=== PATIENT | female | born 1930 | race African-American/Black ===

== ENCOUNTER 2017-12-01 13:28 | Inpatient (IN) | payer MEDICARE, MEDICAID ==
[2017-12-01] MEDS: DILTIAZEM 25 MG INJ IV (14:30)
[2017-12-01] MEDS: DILTIAZEM-D5W 125MG/125ML DRIP 125 ML IV (14:41)
[2017-12-01 15:14] LABS: ADD MAN DIFF? NO
[2017-12-01 15:21] LABS: WHITE BLOOD COUNT 4.7 10^3/ul (4.8-10.8)
[2017-12-01 15:21] LABS: BASOPHILS % 0.4 % (0.0-2.0); EOSINOPHILS # 0.1 10^3/ul (0.0-0.5); EOSINOPHILS % 2.3 % (0.0-7.0); HEMATOCRIT 41.5 % (37.0-47.0); LYMPHOCYTES # 1.9 10^3/ul (0.8-2.9); LYMPHOCYTES % 40.8 % (15.0-51.0); MEAN CORPUSCULAR HEMOGLOBIN 29.4 pg (29.0-33.0); MEAN CORPUSCULAR HGB CONC 31.3 g/dl (32.0-37.0); MEAN CORPUSCULAR VOLUME 93.9 fl (82.0-101.0); MEAN PLATELET VOLUME 12.3 fl (7.4-10.4); MONOCYTE # 0.6 10^3/ul (0.3-0.9); MONOCYTES % 13.6 % (0.0-11.0); NEUTROPHILS % 42.7 % (39.0-77.0); PLATELET COUNT 154 10^3/UL (140-415); RED BLOOD COUNT 4.42 10^6/ul (4.20-5.40); RED CELL DISTRIBUTION WIDTH 12.9 % (11.5-14.5)
[2017-12-01 15:35] LABS: INR 1.18; PROTIME 15.2 Sec (11.9-14.9); PT RATIO 1.2
[2017-12-01 15:36] LABS: PARTIAL THROMBOPLASTIN TIME 30.3 Sec (25.0-35.0)
[2017-12-01 15:41] LABS: ALANINE AMINOTRANSFERASE 26 IU/L (13-69); ALBUMIN/GLOBULIN RATIO 1.05; ALKALINE PHOSPHATASE 71 IU/L (42-121); ANION GAP 18 (8-16); ASPARTATE AMINO TRANSFERASE 24 IU/L (15-46); BILIRUBIN,INDIRECT 0.2 mg/dl (0-1.1); BILIRUBIN,TOTAL 0.2 mg/dl (0.2-1.3); BLOOD UREA NITROGEN 25 mg/dl (7-20); CALCIUM 9.2 mg/dl (8.4-10.2); CARBON DIOXIDE 28 mmol/L (21-31); CHLORIDE 104 mmol/L (97-110); CREATININE 0.98 mg/dl (0.44-1.00); GLUCOSE 166 mg/dl (70-220); POTASSIUM 4.5 mmol/L (3.5-5.1); SODIUM 145 mmol/L (135-144); TOTAL PROTEIN 7.8 g/dl (6.1-8.1)
[2017-12-01] MEDS: SOD CHLORIDE 0.9% 1,000 ML IV (15:44)
[2017-12-01 15:51] LABS: B-TYPE NATRIURETIC PEPTIDE 2950 PG/ML (0-450); TROPONIN-I 0.029 ng/ml (0.00-0.12)
[2017-12-01] MEDS ORDERED: ACETAMINOPHEN 325 MG TAB PO (16:00)
[2017-12-01] MEDS ORDERED: ONDANSETRON 4 MG INJ IV (16:00)
[2017-12-01] MEDS ORDERED: ZOLPIDEM 5 MG TAB PO (20:00)
[2017-12-01] MEDS ORDERED: NACL 0.9% 3 ML SYG IV (20:00)
[2017-12-01] MEDS ORDERED: ONDANSETRON 4 MG TAB PO (20:00)
[2017-12-01] MEDS: FUROSEMIDE 40 MG INJ IV (20:15)
[2017-12-01] MEDS: APIXABAN 5 MG TABLET PO (20:35)
[2017-12-01] MEDS: traMADol 50 MG TAB PO (23:28)
[2017-12-01] MEDS: METOPROLOL (XL) 25 MG TAB PO (23:29)
[2017-12-02 07:50] LABS: ADD MAN DIFF? NO
[2017-12-02 07:59] LABS: BASOPHILS % 0.4 % (0.0-2.0); EOSINOPHILS # 0.1 10^3/ul (0.0-0.5); EOSINOPHILS % 2.7 % (0.0-7.0); HEMATOCRIT 40.2 % (37.0-47.0); HEMOGLOBIN 12.8 g/dl (12.0-16.0); LYMPHOCYTES # 2.1 10^3/ul (0.8-2.9); LYMPHOCYTES % 42.2 % (15.0-51.0); MEAN CORPUSCULAR HEMOGLOBIN 29.7 pg (29.0-33.0); MEAN CORPUSCULAR HGB CONC 31.8 g/dl (32.0-37.0); MEAN CORPUSCULAR VOLUME 93.3 fl (82.0-101.0); MEAN PLATELET VOLUME 11.9 fl (7.4-10.4); MONOCYTE # 0.6 10^3/ul (0.3-0.9); MONOCYTES % 11.9 % (0.0-11.0); NEUTROPHIL # 2.1 10^3/ul (1.6-7.5); NEUTROPHILS % 42.6 % (39.0-77.0); PLATELET COUNT 166 10^3/UL (140-415); RED BLOOD COUNT 4.31 10^6/ul (4.20-5.40); RED CELL DISTRIBUTION WIDTH 12.7 % (11.5-14.5)
[2017-12-02 07:59] LABS: WHITE BLOOD COUNT 4.9 10^3/ul (4.8-10.8)
[2017-12-02 08:33] LABS: ALANINE AMINOTRANSFERASE 21 IU/L (13-69); ALBUMIN 3.8 g/dl (3.3-4.9); ALBUMIN/GLOBULIN RATIO 1.05; ALKALINE PHOSPHATASE 67 IU/L (42-121); ANION GAP 17 (8-16); ASPARTATE AMINO TRANSFERASE 22 IU/L (15-46); BILIRUBIN,INDIRECT 0.3 mg/dl (0-1.1); BILIRUBIN,TOTAL 0.3 mg/dl (0.2-1.3); BLOOD UREA NITROGEN 23 mg/dl (7-20); CALCIUM 8.9 mg/dl (8.4-10.2); CARBON DIOXIDE 30 mmol/L (21-31); CHLORIDE 102 mmol/L (97-110); CHOLESTEROL 168 mg/dl (100-200); CREATININE 0.98 mg/dl (0.44-1.00); GLUCOSE 160 mg/dl (70-220); HDL CHOLESTEROL 55 mg/dl (33-92); LDL CHOLESTEROL,CALCULATED 90 mg/dl; MAGNESIUM 1.7 mg/dl (1.7-2.5); POTASSIUM 4.1 mmol/L (3.5-5.1); SODIUM 145 mmol/L (135-144); TOTAL PROTEIN 7.4 g/dl (6.1-8.1); TRIGLYCERIDES 114 mg/dl (0-149)
[2017-12-02] MEDS: APIXABAN 5 MG TABLET PO ×2 (08:39→20:14)
[2017-12-02] MEDS: METOPROLOL (XL) 25 MG TAB PO ×2 (08:41→20:14)
[2017-12-02 08:55] LABS: HEMOGLOBIN A1C 7.4 % (0-5.9)
[2017-12-02] MEDS ORDERED: METOPROLOL (XL) 25 MG TAB PO (09:00)
[2017-12-02] MEDS: DILTIAZEM-D5W 125MG/125ML DRIP 125 ML IV (12:32)
[2017-12-02] MEDS: MAGNESIUM SULFATE 2 GM/50 ML 50 ML IVPB (17:05)
[2017-12-02] MEDS ORDERED: GLUCOSE GEL 15 GRAM TUBE BUCCAL (18:30)
[2017-12-02] MEDS ORDERED: GLUCAGON 1 MG INJ IM (18:30)
[2017-12-02] MEDS ORDERED: GLUCOSE GEL 15 GRAM TUBE PO ×2 (18:30)
[2017-12-02] MEDS ORDERED: ALPRAZOLAM 0.25 MG TAB PO (18:30)
[2017-12-02] MEDS ORDERED: DEXTROSE 50% 50 ML SYRINGE IV ×2 (18:30)
[2017-12-02] MEDS: Discontinue current oral sulfonylureas (glyburide, glipizide, and/or glimepiride) prior to XX (18:32)
[2017-12-02] MEDS: HYPOGLYCEMIA PROTOCOL when Glucose is <70 mg/dL or symptomatic <90 mg/dL. XX (18:32)
[2017-12-02] MEDS: FUROSEMIDE 40 MG INJ IV (18:45)
[2017-12-02] MEDS: INSULIN ASPART [NOVOLOG] 3 ML PEN SC (20:16)
[2017-12-03] MEDS: DILTIAZEM-D5W 125MG/125ML DRIP 125 ML IV ×3 (02:05→21:54)
[2017-12-03] MEDS: ACCU-CHEK XX (02:07)
[2017-12-03] MEDS: INSULIN ASPART [NOVOLOG] 3 ML PEN SC ×4 (08:02→20:15)
[2017-12-03] MEDS: METOPROLOL (XL) 25 MG TAB PO ×2 (09:00→20:10)
[2017-12-03] MEDS: APIXABAN 5 MG TABLET PO ×2 (09:28→20:09)
[2017-12-03] MEDS: traMADol 50 MG TAB PO ×2 (09:29→20:09)
[2017-12-03] MEDS: FUROSEMIDE 20 MG INJ IV (10:31)
[2017-12-03] MEDS: DILTIAZEM (CD) 120 MG CAP PO (10:31)
[2017-12-03] MEDS: DILTIAZEM (CD) 180 MG CAP PO (17:02)
[2017-12-03] MEDS: DOCUSATE SODIUM 100 MG CAP PO (18:40)
[2017-12-03] MEDS ORDERED: DILTIAZEM (CD) 120 MG CAP PO (21:00)
[2017-12-04] MEDS: ACCU-CHEK XX (01:16)
[2017-12-04] MEDS: DILTIAZEM (CD) 180 MG CAP PO ×2 (08:45→21:57)
[2017-12-04] MEDS: APIXABAN 5 MG TABLET PO ×2 (08:45→21:00)
[2017-12-04] MEDS: METOPROLOL (XL) 25 MG TAB PO ×2 (08:45→21:58)
[2017-12-04] MEDS: INSULIN ASPART [NOVOLOG] 3 ML PEN SC ×4 (08:48→21:00)
[2017-12-04 08:54] LABS: ADD MAN DIFF? NO
[2017-12-04 09:09] LABS: WHITE BLOOD COUNT 7.2 10^3/ul (4.8-10.8)
[2017-12-04 09:09] LABS: BASOPHILS % 0.3 % (0.0-2.0); EOSINOPHILS % 0.6 % (0.0-7.0); HEMATOCRIT 37.5 % (37.0-47.0); HEMOGLOBIN 12.1 g/dl (12.0-16.0); LYMPHOCYTES # 1.5 10^3/ul (0.8-2.9); LYMPHOCYTES % 21.1 % (15.0-51.0); MEAN CORPUSCULAR HGB CONC 32.3 g/dl (32.0-37.0); MEAN CORPUSCULAR VOLUME 93.1 fl (82.0-101.0); MONOCYTE # 1.1 10^3/ul (0.3-0.9); MONOCYTES % 15.2 % (0.0-11.0); NEUTROPHIL # 4.5 10^3/ul (1.6-7.5); NEUTROPHILS % 62.5 % (39.0-77.0); PLATELET COUNT 148 10^3/UL (140-415); RED BLOOD COUNT 4.03 10^6/ul (4.20-5.40)
[2017-12-04 09:32] LABS: ANION GAP 14 (8-16); BLOOD UREA NITROGEN 39 mg/dl (7-20); CALCIUM 8.3 mg/dl (8.4-10.2); CARBON DIOXIDE 31 mmol/L (21-31); CHLORIDE 97 mmol/L (97-110); CREATININE 1.43 mg/dl (0.44-1.00); GLUCOSE 209 mg/dl (70-220); POTASSIUM 4.8 mmol/L (3.5-5.1); SODIUM 137 mmol/L (135-144)
[2017-12-04] MEDS: traMADol 50 MG TAB PO ×2 (11:23→21:58)
[2017-12-04] MEDS: CEFTRIAXONE 1 GM/50 ML (PMX) 50 ML IVPB (12:07)
[2017-12-05] MEDS: ACCU-CHEK XX (01:51)
[2017-12-05] MEDS: APIXABAN 5 MG TABLET PO ×2 (07:49→21:23)
[2017-12-05] MEDS: DILTIAZEM (CD) 180 MG CAP PO ×2 (07:50→21:22)
[2017-12-05] MEDS: METOPROLOL (XL) 25 MG TAB PO ×2 (07:51→21:23)
[2017-12-05] MEDS: ACETAMINOPHEN 325 MG TAB PO (07:59)
[2017-12-05] MEDS: LINAGLIPTIN 5 MG TABLET PO (08:07)
[2017-12-05] MEDS: INSULIN ASPART [NOVOLOG] 3 ML PEN SC ×4 (08:10→21:25)
[2017-12-05 08:27] LABS: ADD MAN DIFF? NO
[2017-12-05 08:30] LABS: WHITE BLOOD COUNT 6.9 10^3/ul (4.8-10.8)
[2017-12-05 08:30] LABS: BASOPHILS % 0.1 % (0.0-2.0); EOSINOPHILS % 0.4 % (0.0-7.0); HEMATOCRIT 38.1 % (37.0-47.0); LYMPHOCYTES % 15.2 % (15.0-51.0); MEAN CORPUSCULAR HEMOGLOBIN 29.5 pg (29.0-33.0); MEAN CORPUSCULAR HGB CONC 31.5 g/dl (32.0-37.0); MEAN CORPUSCULAR VOLUME 93.6 fl (82.0-101.0); MEAN PLATELET VOLUME 11.6 fl (7.4-10.4); MONOCYTE # 0.7 10^3/ul (0.3-0.9); MONOCYTES % 10.1 % (0.0-11.0); NEUTROPHIL # 5.1 10^3/ul (1.6-7.5); NEUTROPHILS % 73.9 % (39.0-77.0); PLATELET COUNT 148 10^3/UL (140-415); RED BLOOD COUNT 4.07 10^6/ul (4.20-5.40); RED CELL DISTRIBUTION WIDTH 12.7 % (11.5-14.5)
[2017-12-05 08:49] LABS: ANION GAP 14 (8-16); BLOOD UREA NITROGEN 54 mg/dl (7-20); CALCIUM 8.5 mg/dl (8.4-10.2); CARBON DIOXIDE 31 mmol/L (21-31); CHLORIDE 93 mmol/L (97-110); CREATININE 1.54 mg/dl (0.44-1.00); GLUCOSE 216 mg/dl (70-220); MAGNESIUM 2.5 mg/dl (1.7-2.5); POTASSIUM 4.9 mmol/L (3.5-5.1); SODIUM 133 mmol/L (135-144)
[2017-12-05] MEDS: traMADol 50 MG TAB PO ×2 (09:08→22:49)
[2017-12-05] MEDS: CEFTRIAXONE 1 GM/50 ML (PMX) 50 ML IVPB (12:19)
[2017-12-06] MEDS: ACCU-CHEK XX (02:00)
[2017-12-06] MEDS: traMADol 50 MG TAB PO ×3 (06:19→22:23)
[2017-12-06] MEDS: INSULIN ASPART [NOVOLOG] 3 ML PEN SC ×4 (08:56→20:57)
[2017-12-06] MEDS: METOPROLOL (XL) 25 MG TAB PO ×2 (09:00→20:48)
[2017-12-06] MEDS: DILTIAZEM (CD) 180 MG CAP PO ×2 (09:19→20:56)
[2017-12-06] MEDS: LINAGLIPTIN 5 MG TABLET PO (09:20)
[2017-12-06 09:21] LABS: ADD MAN DIFF? NO
[2017-12-06] MEDS: APIXABAN 5 MG TABLET PO ×2 (09:21→20:57)
[2017-12-06 09:35] LABS: BASOPHILS % 0.3 % (0.0-2.0); EOSINOPHILS # 0.1 10^3/ul (0.0-0.5); EOSINOPHILS % 1.7 % (0.0-7.0); HEMATOCRIT 39.5 % (37.0-47.0); HEMOGLOBIN 12.5 g/dl (12.0-16.0); LYMPHOCYTES # 1.3 10^3/ul (0.8-2.9); MEAN CORPUSCULAR HEMOGLOBIN 29.6 pg (29.0-33.0); MEAN CORPUSCULAR HGB CONC 31.6 g/dl (32.0-37.0); MEAN CORPUSCULAR VOLUME 93.4 fl (82.0-101.0); MONOCYTE # 0.7 10^3/ul (0.3-0.9); MONOCYTES % 12.1 % (0.0-11.0); NEUTROPHIL # 3.8 10^3/ul (1.6-7.5); NEUTROPHILS % 64.6 % (39.0-77.0); PLATELET COUNT 171 10^3/UL (140-415); RED BLOOD COUNT 4.23 10^6/ul (4.20-5.40); RED CELL DISTRIBUTION WIDTH 12.7 % (11.5-14.5)
[2017-12-06 09:50] LABS: ANION GAP 13 (8-16); BLOOD UREA NITROGEN 62 mg/dl (7-20); CALCIUM 8.6 mg/dl (8.4-10.2); CARBON DIOXIDE 30 mmol/L (21-31); CHLORIDE 94 mmol/L (97-110); CREATININE 1.66 mg/dl (0.44-1.00); GLUCOSE 207 mg/dl (70-220); POTASSIUM 4.4 mmol/L (3.5-5.1); SODIUM 133 mmol/L (135-144)
[2017-12-06] MEDS: CEFTRIAXONE 1 GM/50 ML (PMX) 50 ML IVPB (11:41)
[2017-12-06] MEDS: SOD CHLORIDE 0.45% 1,000 ML IV (14:06)
[2017-12-07] MEDS: ACCU-CHEK XX (02:00)
[2017-12-07] MEDS: INSULIN ASPART [NOVOLOG] 3 ML PEN SC ×2 (08:08→11:30)
[2017-12-07 08:27] LABS: ADD MAN DIFF? NO
[2017-12-07 08:31] LABS: WHITE BLOOD COUNT 4.3 10^3/ul (4.8-10.8)
[2017-12-07 08:31] LABS: BASOPHILS % 0.7 % (0.0-2.0); EOSINOPHILS # 0.2 10^3/ul (0.0-0.5); EOSINOPHILS % 3.7 % (0.0-7.0); HEMATOCRIT 35.5 % (37.0-47.0); HEMOGLOBIN 11.4 g/dl (12.0-16.0); LYMPHOCYTES # 1.4 10^3/ul (0.8-2.9); LYMPHOCYTES % 32.3 % (15.0-51.0); MEAN CORPUSCULAR HEMOGLOBIN 29.8 pg (29.0-33.0); MEAN CORPUSCULAR HGB CONC 32.1 g/dl (32.0-37.0); MEAN CORPUSCULAR VOLUME 92.7 fl (82.0-101.0); MEAN PLATELET VOLUME 11.9 fl (7.4-10.4); MONOCYTE # 0.7 10^3/ul (0.3-0.9); MONOCYTES % 15.8 % (0.0-11.0); NEUTROPHILS % 47.3 % (39.0-77.0); PLATELET COUNT 157 10^3/UL (140-415); RED BLOOD COUNT 3.83 10^6/ul (4.20-5.40); RED CELL DISTRIBUTION WIDTH 12.8 % (11.5-14.5)
[2017-12-07 08:59] LABS: ANION GAP 10 (8-16); BLOOD UREA NITROGEN 47 mg/dl (7-20); CALCIUM 8.4 mg/dl (8.4-10.2); CARBON DIOXIDE 31 mmol/L (21-31); CHLORIDE 98 mmol/L (97-110); GLUCOSE 161 mg/dl (70-220); MAGNESIUM 2.7 mg/dl (1.7-2.5); POTASSIUM 4.2 mmol/L (3.5-5.1); SODIUM 135 mmol/L (135-144)
[2017-12-07] MEDS: METOPROLOL (XL) 25 MG TAB PO (09:00)
[2017-12-07] MEDS: SOD CHLORIDE 0.45% 1,000 ML IV (09:09)
[2017-12-07] MEDS: LINAGLIPTIN 5 MG TABLET PO (09:09)
[2017-12-07] MEDS: DILTIAZEM (CD) 180 MG CAP PO (09:09)
[2017-12-07] MEDS: APIXABAN 5 MG TABLET PO (09:09)
[2017-12-07] MEDS: CEFTRIAXONE 1 GM/50 ML (PMX) 50 ML IVPB (11:25)
== END 2017-12-07 15:39 | DRG 308 ==
LOC: E/R 13:28 → TEL 15:34
DX: I48.91 Unspecified atrial fibrillation (principal); I50.31 Acute diastolic (congestive) heart failure; N17.9 Acute kidney failure, unspecified; N39.0 Urinary tract infection, site not specified; E11.9 Type 2 diabetes mellitus without complications; I11.0 Hypertensive heart disease with heart failure; E83.42 Hypomagnesemia; Z79.01 Long term (current) use of anticoagulants; Z79.4 Long term (current) use of insulin; Z86.718 Personal history of other venous thrombosis and embolism
CPT/HCPCS: 36415; 71045; 80048; 80053; 80061; 82962; 83036; 83735; 83880; 84484; 85025; 85610; 85730; 87086; 93005; 93306; 96365; 96366; 96375; 97162; 99291-25; J1940

== ENCOUNTER 2017-12-07 17:53 | Inpatient (IN) | payer MEDICARE, MEDICAID ==
[2017-12-07] MEDS ORDERED: GLUCOSE GEL 15 GRAM TUBE PO ×2 (19:30)
[2017-12-07] MEDS ORDERED: GLUCAGON 1 MG INJ IM (19:30)
[2017-12-07] MEDS ORDERED: DEXTROSE 50% 50 ML SYRINGE IV ×2 (19:30)
[2017-12-07] MEDS ORDERED: NACL 0.9% 3 ML SYG IV (19:30)
[2017-12-07] MEDS ORDERED: ONDANSETRON 4 MG TAB PO (19:30)
[2017-12-07] MEDS ORDERED: GLUCOSE GEL 15 GRAM TUBE BUCCAL (19:30)
[2017-12-07] MEDS: INSULIN ASPART [NOVOLOG] 3 ML PEN SC (21:00)
[2017-12-07] MEDS: SOD CHLORIDE 0.45% 1,000 ML IV (21:30)
[2017-12-07] MEDS: METOPROLOL (XL) 25 MG TAB PO (21:31)
[2017-12-07] MEDS: APIXABAN 5 MG TABLET PO (21:31)
[2017-12-07] MEDS: DILTIAZEM (CD) 180 MG CAP PO (21:35)
[2017-12-07] MEDS: traMADol 50 MG TAB PO (21:35)
[2017-12-08 00:35] LABS: ADD UMIC NO; UR ASCORBIC ACID NEGATIVE (NEGATIVE); UR BILIRUBIN (Dip) NEGATIVE (NEGATIVE); UR BLOOD (Dip) NEGATIVE (NEGATIVE); UR CLARITY CLEAR (CLEAR); UR COLOR STRAW (YELLOW); UR GLUCOSE (Dip) NEGATIVE (NEGATIVE); UR KETONES (Dip) NEGATIVE (NEGATIVE); UR LEUKOCYTE ESTERASE (Dip) NEGATIVE Leu/ul (NEGATIVE); UR NITRITE (Dip) NEGATIVE (NEGATIVE); UR SPECIFIC GRAVITY (Dip) 1.006 (1.003-1.030); UR TOTAL PROTEIN (Dip) NEGATIVE (NEGATIVE); UR UROBILINOGEN (Dip) NEGATIVE (NEGATIVE)
[2017-12-08] MEDS: ACCU-CHEK XX (02:00)
[2017-12-08 08:17] LABS: ADD MAN DIFF? NO
[2017-12-08 08:19] LABS: BASOPHILS % 0.7 % (0.0-2.0); EOSINOPHILS # 0.2 10^3/ul (0.0-0.5); EOSINOPHILS % 3.3 % (0.0-7.0); HEMATOCRIT 39.9 % (37.0-47.0); HEMOGLOBIN 12.7 g/dl (12.0-16.0); LYMPHOCYTES # 1.6 10^3/ul (0.8-2.9); LYMPHOCYTES % 35.3 % (15.0-51.0); MEAN CORPUSCULAR HEMOGLOBIN 29.7 pg (29.0-33.0); MEAN CORPUSCULAR HGB CONC 31.8 g/dl (32.0-37.0); MEAN CORPUSCULAR VOLUME 93.4 fl (82.0-101.0); MEAN PLATELET VOLUME 11.7 fl (7.4-10.4); MONOCYTE # 0.6 10^3/ul (0.3-0.9); MONOCYTES % 13.1 % (0.0-11.0); NEUTROPHIL # 2.1 10^3/ul (1.6-7.5); NEUTROPHILS % 47.4 % (39.0-77.0); PLATELET COUNT 196 10^3/UL (140-415); RED BLOOD COUNT 4.27 10^6/ul (4.20-5.40); RED CELL DISTRIBUTION WIDTH 12.6 % (11.5-14.5)
[2017-12-08 08:19] LABS: WHITE BLOOD COUNT 4.5 10^3/ul (4.8-10.8)
[2017-12-08 08:46] LABS: ALANINE AMINOTRANSFERASE 23 IU/L (13-69); ALBUMIN 3.8 g/dl (3.3-4.9); ALBUMIN/GLOBULIN RATIO 0.95; ALKALINE PHOSPHATASE 52 IU/L (42-121); ANION GAP 14 (8-16); ASPARTATE AMINO TRANSFERASE 31 IU/L (15-46); BILIRUBIN,INDIRECT 0.3 mg/dl (0-1.1); BILIRUBIN,TOTAL 0.3 mg/dl (0.2-1.3); BLOOD UREA NITROGEN 28 mg/dl (7-20); CALCIUM 8.5 mg/dl (8.4-10.2); CARBON DIOXIDE 30 mmol/L (21-31); CHLORIDE 100 mmol/L (97-110); CREATININE 0.98 mg/dl (0.44-1.00); GLUCOSE 165 mg/dl (70-220); POTASSIUM 4.6 mmol/L (3.5-5.1); SODIUM 139 mmol/L (135-144); TOTAL PROTEIN 7.8 g/dl (6.1-8.1)
[2017-12-08] MEDS: INSULIN ASPART [NOVOLOG] 3 ML PEN SC ×4 (09:03→21:00)
[2017-12-08] MEDS: traMADol 50 MG TAB PO ×2 (09:18→21:32)
[2017-12-08] MEDS: LINAGLIPTIN 5 MG TABLET PO (09:18)
[2017-12-08] MEDS: DILTIAZEM (CD) 180 MG CAP PO ×2 (09:19→21:31)
[2017-12-08] MEDS: APIXABAN 5 MG TABLET PO ×2 (09:19→21:32)
[2017-12-08] MEDS: METOPROLOL (XL) 25 MG TAB PO ×2 (09:20→21:32)
[2017-12-08] MEDS ORDERED: VITAMIN A & D 5 GM OINT PACKET TOP (11:07)
[2017-12-08] MEDS: CEFTRIAXONE 1 GM/50 ML (PMX) 50 ML IVPB ×2 (12:00→14:14)
[2017-12-08] MEDS: SOD CHLORIDE 0.45% 1,000 ML IV (14:21)
[2017-12-08] MEDS: ALPRAZOLAM 0.25 MG TAB PO (21:32)
[2017-12-09] MEDS: ACCU-CHEK XX (02:00)
[2017-12-09] MEDS: INSULIN ASPART [NOVOLOG] 3 ML PEN SC ×4 (07:35→21:00)
[2017-12-09] MEDS: DILTIAZEM (CD) 180 MG CAP PO ×3 (09:00→21:16)
[2017-12-09] MEDS: METOPROLOL (XL) 25 MG TAB PO ×2 (10:42→21:17)
[2017-12-09] MEDS: LINAGLIPTIN 5 MG TABLET PO (10:43)
[2017-12-09] MEDS: APIXABAN 5 MG TABLET PO ×2 (10:43→21:15)
[2017-12-09] MEDS: CEFTRIAXONE 1 GM/50 ML (PMX) 50 ML IVPB (12:18)
[2017-12-09] MEDS: traMADol 50 MG TAB PO (21:15)
[2017-12-09] MEDS: ALPRAZOLAM 0.25 MG TAB PO (21:15)
[2017-12-10] MEDS: ACCU-CHEK XX (02:00)
[2017-12-10] MEDS: INSULIN ASPART [NOVOLOG] 3 ML PEN SC ×4 (07:35→20:49)
[2017-12-10] MEDS: APIXABAN 5 MG TABLET PO ×2 (09:04→20:22)
[2017-12-10] MEDS: DILTIAZEM (CD) 180 MG CAP PO ×2 (09:04→20:27)
[2017-12-10] MEDS: LINAGLIPTIN 5 MG TABLET PO (09:05)
[2017-12-10] MEDS: METOPROLOL (XL) 25 MG TAB PO ×2 (09:05→20:25)
[2017-12-10] MEDS: traMADol 50 MG TAB PO (20:22)
[2017-12-11] MEDS: ACCU-CHEK XX (02:20)
[2017-12-11 07:29] LABS: ADD MAN DIFF? NO
[2017-12-11 07:32] LABS: BASOPHILS % 0.8 % (0.0-2.0); EOSINOPHILS # 0.2 10^3/ul (0.0-0.5); EOSINOPHILS % 4.1 % (0.0-7.0); HEMATOCRIT 35.6 % (37.0-47.0); HEMOGLOBIN 11.5 g/dl (12.0-16.0); LYMPHOCYTES # 1.5 10^3/ul (0.8-2.9); LYMPHOCYTES % 37.8 % (15.0-51.0); MEAN CORPUSCULAR HEMOGLOBIN 29.9 pg (29.0-33.0); MEAN CORPUSCULAR HGB CONC 32.3 g/dl (32.0-37.0); MEAN CORPUSCULAR VOLUME 92.5 fl (82.0-101.0); MEAN PLATELET VOLUME 11.2 fl (7.4-10.4); MONOCYTE # 0.5 10^3/ul (0.3-0.9); MONOCYTES % 12.9 % (0.0-11.0); NEUTROPHIL # 1.7 10^3/ul (1.6-7.5); NEUTROPHILS % 44.1 % (39.0-77.0); PLATELET COUNT 189 10^3/UL (140-415); RED BLOOD COUNT 3.85 10^6/ul (4.20-5.40); RED CELL DISTRIBUTION WIDTH 12.7 % (11.5-14.5)
[2017-12-11 07:32] LABS: WHITE BLOOD COUNT 3.9 10^3/ul (4.8-10.8)
[2017-12-11 07:54] LABS: ANION GAP 14 (8-16); BLOOD UREA NITROGEN 21 mg/dl (7-20); CALCIUM 8.5 mg/dl (8.4-10.2); CARBON DIOXIDE 27 mmol/L (21-31); CHLORIDE 105 mmol/L (97-110); CREATININE 0.95 mg/dl (0.44-1.00); GLUCOSE 133 mg/dl (70-220); POTASSIUM 4.5 mmol/L (3.5-5.1); SODIUM 141 mmol/L (135-144)
[2017-12-11] MEDS: INSULIN ASPART [NOVOLOG] 3 ML PEN SC ×4 (08:47→20:28)
[2017-12-11] MEDS: APIXABAN 5 MG TABLET PO ×2 (08:53→20:22)
[2017-12-11] MEDS: traMADol 50 MG TAB PO ×2 (08:53→20:22)
[2017-12-11] MEDS: METOPROLOL (XL) 25 MG TAB PO ×2 (08:54→20:24)
[2017-12-11] MEDS: LINAGLIPTIN 5 MG TABLET PO (08:55)
[2017-12-11] MEDS: DILTIAZEM (CD) 180 MG CAP PO ×2 (09:58→20:24)
[2017-12-11] MEDS: DOCUSATE SODIUM 100 MG CAP PO (20:31)
[2017-12-12] MEDS: ACCU-CHEK XX (02:25)
[2017-12-12] MEDS: traMADol 50 MG TAB PO ×2 (03:38→14:25)
[2017-12-12] MEDS: INSULIN ASPART [NOVOLOG] 3 ML PEN SC ×4 (07:35→20:56)
[2017-12-12] MEDS: LINAGLIPTIN 5 MG TABLET PO (09:10)
[2017-12-12] MEDS: METOPROLOL (XL) 25 MG TAB PO ×2 (09:11→20:55)
[2017-12-12] MEDS: APIXABAN 5 MG TABLET PO ×2 (09:11→20:55)
[2017-12-12] MEDS: DILTIAZEM (CD) 180 MG CAP PO ×2 (09:11→20:55)
[2017-12-13] MEDS: ACCU-CHEK XX (02:00)
[2017-12-13] MEDS: INSULIN ASPART [NOVOLOG] 3 ML PEN SC ×4 (07:35→20:52)
[2017-12-13] MEDS: LINAGLIPTIN 5 MG TABLET PO (09:33)
[2017-12-13] MEDS: APIXABAN 5 MG TABLET PO ×2 (09:33→20:50)
[2017-12-13] MEDS: traMADol 50 MG TAB PO (09:38)
[2017-12-13] MEDS: DILTIAZEM (CD) 180 MG CAP PO ×2 (09:39→20:51)
[2017-12-13] MEDS: METOPROLOL (XL) 25 MG TAB PO ×2 (09:40→20:51)
[2017-12-14] MEDS: ACCU-CHEK XX (02:00)
[2017-12-14] MEDS: INSULIN ASPART [NOVOLOG] 3 ML PEN SC ×4 (07:35→20:28)
[2017-12-14] MEDS: LINAGLIPTIN 5 MG TABLET PO (08:25)
[2017-12-14] MEDS: DILTIAZEM (CD) 180 MG CAP PO ×2 (08:25→20:24)
[2017-12-14] MEDS: METOPROLOL (XL) 25 MG TAB PO ×2 (08:25→20:25)
[2017-12-14] MEDS: APIXABAN 5 MG TABLET PO ×2 (08:25→20:24)
[2017-12-15] MEDS: ACCU-CHEK XX (02:00)
[2017-12-15] MEDS: INSULIN ASPART [NOVOLOG] 3 ML PEN SC ×4 (07:35→20:48)
[2017-12-15] MEDS: APIXABAN 5 MG TABLET PO ×2 (08:49→20:52)
[2017-12-15] MEDS: LINAGLIPTIN 5 MG TABLET PO (08:50)
[2017-12-15] MEDS: METOPROLOL (XL) 25 MG TAB PO ×2 (08:50→20:51)
[2017-12-15] MEDS: DILTIAZEM (CD) 180 MG CAP PO ×2 (08:50→20:50)
[2017-12-16] MEDS: ACCU-CHEK XX (01:21)
[2017-12-16] MEDS: INSULIN ASPART [NOVOLOG] 3 ML PEN SC ×4 (07:35→20:41)
[2017-12-16] MEDS: APIXABAN 5 MG TABLET PO ×2 (08:35→20:39)
[2017-12-16] MEDS: DILTIAZEM (CD) 180 MG CAP PO ×2 (08:35→20:39)
[2017-12-16] MEDS: LINAGLIPTIN 5 MG TABLET PO (08:35)
[2017-12-16] MEDS: METOPROLOL (XL) 25 MG TAB PO ×2 (08:36→20:39)
[2017-12-16] MEDS: traMADol 50 MG TAB PO (20:40)
[2017-12-17] MEDS: ACCU-CHEK XX (02:00)
[2017-12-17] MEDS: INSULIN ASPART [NOVOLOG] 3 ML PEN SC ×4 (07:35→21:00)
[2017-12-17] MEDS: DILTIAZEM (CD) 180 MG CAP PO ×2 (10:28→21:30)
[2017-12-17] MEDS: APIXABAN 5 MG TABLET PO ×2 (10:28→21:29)
[2017-12-17] MEDS: METOPROLOL (XL) 25 MG TAB PO ×2 (10:28→21:30)
[2017-12-17] MEDS: LINAGLIPTIN 5 MG TABLET PO (10:29)
[2017-12-18] MEDS: ACCU-CHEK XX (02:00)
[2017-12-18] MEDS: traMADol 50 MG TAB PO (02:32)
[2017-12-18] MEDS: INSULIN ASPART [NOVOLOG] 3 ML PEN SC ×4 (07:35→20:32)
[2017-12-18] MEDS: APIXABAN 5 MG TABLET PO ×2 (09:37→20:25)
[2017-12-18] MEDS: DILTIAZEM (CD) 180 MG CAP PO ×2 (09:38→20:25)
[2017-12-18] MEDS: METOPROLOL (XL) 25 MG TAB PO ×2 (09:39→20:25)
[2017-12-18] MEDS: LINAGLIPTIN 5 MG TABLET PO (09:39)
[2017-12-19] MEDS: ACCU-CHEK XX (01:52)
[2017-12-19] MEDS: INSULIN ASPART [NOVOLOG] 3 ML PEN SC ×4 (07:35→20:16)
[2017-12-19] MEDS: LINAGLIPTIN 5 MG TABLET PO (10:10)
[2017-12-19] MEDS: METOPROLOL (XL) 25 MG TAB PO ×2 (10:10→20:13)
[2017-12-19] MEDS: DILTIAZEM (CD) 180 MG CAP PO ×2 (10:10→20:13)
[2017-12-19] MEDS: APIXABAN 5 MG TABLET PO ×2 (10:10→20:12)
[2017-12-19] MEDS: ACETAMINOPHEN 325 MG TAB PO (14:16)
[2017-12-19] MEDS: BETAMET NA PHOS/AC(6 MG/ML) 5ML INJ INJ (19:39)
[2017-12-19] MEDS: BUPIVACAINE 0.5%/EPI (SDV) 30 ML INJ INJ (19:39)
[2017-12-20] MEDS: ACCU-CHEK XX (02:00)
[2017-12-20] MEDS: INSULIN ASPART [NOVOLOG] 3 ML PEN SC ×4 (08:32→20:42)
[2017-12-20] MEDS: traMADol 50 MG TAB PO (08:34)
[2017-12-20] MEDS: DILTIAZEM (CD) 180 MG CAP PO ×2 (08:34→20:37)
[2017-12-20] MEDS: APIXABAN 5 MG TABLET PO ×2 (08:34→20:41)
[2017-12-20] MEDS: METOPROLOL (XL) 25 MG TAB PO ×2 (08:36→20:37)
[2017-12-20] MEDS: LINAGLIPTIN 5 MG TABLET PO (08:43)
[2017-12-20 15:41] LABS: ADD MAN DIFF? NO
[2017-12-20 15:44] LABS: HEMATOCRIT 39.5 % (37.0-47.0); HEMOGLOBIN 12.5 g/dl (12.0-16.0); LYMPHOCYTES # 0.7 10^3/ul (0.8-2.9); LYMPHOCYTES % 14.5 % (15.0-51.0); MEAN CORPUSCULAR HEMOGLOBIN 29.5 pg (29.0-33.0); MEAN CORPUSCULAR HGB CONC 31.6 g/dl (32.0-37.0); MEAN CORPUSCULAR VOLUME 93.2 fl (82.0-101.0); MEAN PLATELET VOLUME 11.3 fl (7.4-10.4); MONOCYTE # 0.1 10^3/ul (0.3-0.9); MONOCYTES % 2.2 % (0.0-11.0); NEUTROPHIL # 4.2 10^3/ul (1.6-7.5); NEUTROPHILS % 83.1 % (39.0-77.0); PLATELET COUNT 193 10^3/UL (140-415); RED BLOOD COUNT 4.24 10^6/ul (4.20-5.40); RED CELL DISTRIBUTION WIDTH 12.9 % (11.5-14.5)
[2017-12-20 15:44] LABS: WHITE BLOOD COUNT 5.1 10^3/ul (4.8-10.8)
[2017-12-20 16:12] LABS: ANION GAP 16 (8-16); BLOOD UREA NITROGEN 28 mg/dl (7-20); CALCIUM 9.9 mg/dl (8.4-10.2); CARBON DIOXIDE 24 mmol/L (21-31); CHLORIDE 105 mmol/L (97-110); GLUCOSE 178 mg/dl (70-220); POTASSIUM 4.8 mmol/L (3.5-5.1); SODIUM 140 mmol/L (135-144)
[2017-12-21] MEDS: ACCU-CHEK XX (02:00)
[2017-12-21] MEDS: INSULIN ASPART [NOVOLOG] 3 ML PEN SC ×2 (08:22→12:31)
[2017-12-21] MEDS: DILTIAZEM (CD) 180 MG CAP PO (08:51)
[2017-12-21] MEDS: APIXABAN 5 MG TABLET PO (08:52)
[2017-12-21] MEDS: METOPROLOL (XL) 25 MG TAB PO (08:52)
[2017-12-21] MEDS: LINAGLIPTIN 5 MG TABLET PO (08:52)
== END 2017-12-21 15:20 | disposition home health service (06) | DRG 945 ==
LOC: VRC 17:53
PROVIDERS: Physical Medicine & Rehabilitation
PROC: F07Z5ZZ Bed Mobility Treatment (ICD-10-PCS; principal; 2017-12-07)
PROC: F08Z7ZZ Vocational Activities and Functional Community or Work Reintegration Skills Treatment (ICD-10-PCS; 2017-12-07)
DX: R53.81 Other malaise (principal); I50.31 Acute diastolic (congestive) heart failure; N17.9 Acute kidney failure, unspecified; I82.4Z1 Acute embolism and thrombosis of unspecified deep veins of right distal lower extremity; I48.91 Unspecified atrial fibrillation; E11.9 Type 2 diabetes mellitus without complications; I11.0 Hypertensive heart disease with heart failure; E66.9 Obesity, unspecified; Z68.31 Body mass index [BMI] 31.0-31.9, adult; Z79.01 Long term (current) use of anticoagulants; F32.9 Major depressive disorder, single episode, unspecified; F06.8 Other specified mental disorders due to known physiological condition; M17.0 Bilateral primary osteoarthritis of knee
CPT/HCPCS: 73562; 80048; 80053; 81003; 82962; 83735; 85025; 87081; 87086; 92507; 92523; 97110; 97112; 97116; 97150; 97163; 97167; 97530; 97535; 97542